=== PATIENT | female | born 1995 | race Caucasian/White ===

== ENCOUNTER 2017-09-05 22:43 | Emergency (ER) | payer BC ==
[2017-09-05 22:58] VITALS: BP 111/69; PULSE 72; TEMP 97.7; BMI 26.6
--- NOTE | 2017-09-06 00:05 | PDOC ---
History of Present Illness - General History Source: Patient Exam Limitations: No Limitations - History of Present Illness Initial Comments: 09/06/17 00:18 The patient is a 22-year-old female, with no significant past medical history, who presents to the ED with mid-sternal chest pain. Patient states that her pain radiates to her left arm and is associated with numbness/tingling. She also reports shortness of breath and nausea, but no vomiting. The patient is currently on her menstrual period and states it is normal. She denies being on any contraceptives. The patient reports having one episode of similar symptoms in the past, but her pain resolved on their own. The patient denies any fever, chills, diarrhea, or abdominal pain. Denies any diaphoresis or lightheadedness. Denies any recent travel. Family History: Denies Social History: The patient denies any tobacco or drug use. PCP: Dr. Zepeda <Alysa Alberto - Last Filed: 09/06/17 01:32> - General History Source: Patient <Matthew Estrada - Last Filed: 09/06/17 01:34> - General Chief Complaint: Pain Stated Complaint: CHEST PAIN Time Seen by Provider: 09/06/17 00:00 Past History <Alysa Alberto - Last Filed: 09/06/17 01:32> - Past Medical History COPD: No - Reproductive History (#): 0 Para: 0 - Immunization History Immunization Up to Date: Yes - Suicide/Smoking/Psychosocial Hx Smoking Status: No Smoking History: Never smoked Number of Cigarettes Smoked Daily: 0 <Matthew Estrada - Last Filed: 09/06/17 01:34> - Past Medical History Allergies/Adverse Reactions: Allergies Allergy/AdvReac Type Severity Reaction Status Date / Time No Known Allergies Allergy Verified 09/05/17 22:55 Home Medications: Ambulatory Orders NK [No Known Home Medication] 09/05/17 Review of Systems - Review of Systems Able to Perform ROS?: Yes Comments:: 09/06/17 00:19 CONSTITUTIONAL: Absent: fever, chills, diaphoresis, generalized weakness, malaise, loss of appetite HEENT: Absent: rhinorrhea, nasal congestion, throat pain, throat swelling, difficulty swallowing, mouth swelling, ear pain, eye pain, visual Changes CARDIOVASCULAR: Present: chest pain Absent: syncope, palpitations, irregular heart rate, lightheadedness, peripheral edema RESPIRATORY: Present: shortness of breath Absent: cough, dyspnea with exertion, orthopnea, wheezing, stridor, hemoptysis GASTROINTESTINAL: Present: nausea Absent: abdominal pain, abdominal distension, vomiting, diarrhea, constipation, melena, hematochezia GENITOURINARY: Absent: dysuria, frequency, urgency, hesitancy, hematuria, flank pain, genital pain MUSCULOSKELETAL: Absent: myalgia, arthralgia, joint swelling SKIN: Absent: rash, itching, pallor HEMATOLOGIC/IMMUNOLOGIC: Absent: easy bleeding, easy bruising, lymphadenopathy, frequent infections ENDOCRINE: Absent: unexplained weight gain, unexplained weight loss, heat intolerance, cold intolerance NEUROLOGIC: Present: numbness and tingling of left arm Absent: headache, dizziness, unsteady gait, seizure, mental status changes, bladder or bowel incontinence PSYCHIATRIC: Absent: anxiety, depression, suicidal or homicidal ideation, hallucinations. <Alysa Alberto - Last Filed: 09/06/17 01:32> *Physical Exam - Vital Signs Last Vital Signs Temp Pulse Resp BP Pulse Ox 97.7 F 72 18 111/69 100 09/05/17 22:56 09/05/17 22:56 09/05/17 22:56 09/05/17 22:56 09/05/17 22:56 - Physical Exam Comments: 09/06/17 00:20 GENERAL: Well developed, well nourished. Awake and alert. No acute distress. HEENT: Normocephalic, atraumatic. PERRLA, EOMI. No conjunctival pallor. Sclera are non- icteric. Moist mucous membranes. Oropharynx is clear. NECK: Supple. Full ROM. No JVD. Carotid pulses 2+ and symmetric, without bruits. No thyromegaly. No lymphadenopathy. CARDIOVASCULAR: Regular rate and rhythm. No murmurs, rubs, or gallops. Distal pulses are 2+ and symmetric. PULMONARY: No evidence of respiratory distress. Lungs clear to auscultation bilaterally. No wheezing, rales or rhonchi. ABDOMINAL: Soft. Non-tender. Non-distended. No rebound or guarding. No organomegaly. Normoactive bowel sounds. MUSCULOSKELETAL Normal range of motion at all joints. No bony deformities or tenderness. No CVA tenderness. EXTREMITIES: No cyanosis. No clubbing. No edema. No calf tenderness. SKIN: Warm and dry. Normal capillary refill. No rashes. No jaundice. NEUROLOGICAL: Alert, awake, appropriate. PSYCHIATRIC: Cooperative. Good eye contact. Appropriate mood and affect. <Alysa Alberto - Last Filed: 09/06/17 01:32> - Vital Signs Last Vital Signs Temp Pulse Resp BP Pulse Ox 97.7 F 72 18 111/69 100 09/05/17 22:56 09/05/17 22:56 09/05/17 22:56 09/05/17 22:56 09/05/17 22:56 <Matthew Estrada - Last Filed: 09/06/17 01:34> ED Treatment Course - LABORATORY CBC & Chemistry Diagram: 09/06/17 00:24 09/06/17 00:24 <Alysa Alberto - Last Filed: 09/06/17 01:32> - LABORATORY CBC & Chemistry Diagram: 09/06/17 00:24 09/06/17 00:24 <Matthew Estrada - Last Filed: 09/06/17 01:34> Medical Decision Making - Medical Decision Making 09/06/17 01:30 Dr. Estrdaa: The scribe's documentation has been prepared under my direction and personally reviewed by me in its entirery. I confirm that the note above accurately reflects all work, treatment, procedures, and medical decision making performed by me. Pt labs are all stable. Pt to follow up with her pcp office to have cardiology referral <Matthew Estrada - Last Filed: 09/06/17 01:34> *DC/Admit/Observation/Transfer - Attestations Scribe Attestion: 09/06/17 00:21 Documentation prepared by Alysa Alberto, acting as medical staff specialist for Matthew Estrada MD. <Alysa Alberto - Last Filed: 09/06/17 01:32> - Discharge Dispostion Admit: No <Matthew Estrada - Last Filed: 09/06/17 01:34> Diagnosis at time of Disposition: Chest pain - Discharge Dispostion Disposition: HOME Condition at time of disposition: Stable - Referrals Referrals: Govind Zepeda MD [Primary Care Provider] - Sam Bowser MD [Staff Physician] - - Patient Instructions Printed Discharge Instructions: DI for Chest Pain Additional Instructions: Please follow up with your primary care doctor for re-evaluation and cardiology referral - Post Discharge Activity Forms/Work/School Notes: Back to School
[2017-09-06 00:38] LABS: BASO % 0.7 % (0-2.0); EOS % 0.5 % (0-4.5); HEMOGLOBIN 11.3 GM/dL (10.7-15.3); LYMPH % 50.7 % (8-40); MCHC 33.3 g/dl (32.0-36.0); MEAN CELL VOLUME 84.2 fl (80-96); MEAN PLT VOLUME 7.8 fl (7.5-11.1); MONO % 6.6 % (3.8-10.2); NEUT % 41.5 % (42.8-82.8); PLATELET COUNT 260 K/MM3 (134-434); RBC 4.04 M/mm3 (3.60-5.2); RDW 15.5 % (11.6-15.6); WHITE BLOOD COUNT 6.9 K/mm3 (4.0-10.0)
[2017-09-06 01:03] LABS: ALBUMIN 3.8 g/dl (3.4-5.0); ANION GAP 11 (8-16); BILIRUBIN,TOTAL 0.3 mg/dL (0.2-1.0); BLOOD UREA NITROGEN 8 mg/dL (7-18); CALCIUM 8.5 mg/dL (8.5-10.1); CHLORIDE 104 mmol/L (98-107); CO2 27 mmol/L (21-32); CREATININE 0.8 mg/dL (0.55-1.02); GLUCOSE,RANDOM 88 mg/dL (74-106); SGOT/AST 19 U/L (15-37); SGPT/ALT 19 U/L (12-78); SODIUM 142 mmol/L (136-145); TOT PROT 7.3 g/dl (6.4-8.2)
[2017-09-06 01:06] LABS: ALK PHOS 59 U/L (45-117)
--- NOTE | 2017-09-06 11:20 | EKG ---
Test Reason : Blood Pressure : / mmHG Vent. Rate : 071 BPM Atrial Rate : 071 BPM P-R Int : 138 ms QRS Dur : 096 ms QT Int : 410 ms P-R-T Axes : 067 079 062 degrees QTc Int : 445 ms NORMAL SINUS RHYTHM WITH SINUS ARRHYTHMIA NORMAL ECG NO PREVIOUS ECGS AVAILABLE Confirmed by GABRIELA DE SANTIAGO MD ([id number]) on 09/06/2017 11:20:30 AM Referred By: Confirmed By:GABRIELA DE SANTIAGO MD
== END 2017-09-06 01:43 | disposition home or self-care (01) ==
LOC: JER 22:43
DX: R07.89 Other chest pain (principal)
CPT/HCPCS: 36415; 80053; 82550; 84484; 84703; 85025; 85379; 93005; 93010; 99283-25

== ENCOUNTER 2022-03-05 18:19 | Emergency (ER) | payer OTHER ==
[2022-03-05 18:37] VITALS: BP 125/78; PULSE 91; RESP 18; TEMP 98.3; BMI 29.7
[2022-03-05] MEDS ORDERED: ACETAMINOPHEN 325 MG TABLET (FP) PO ONE (19:11)
[2022-03-05] MEDS ORDERED: ONDANSETRON 4 MG TABLET PO ONE (19:24)
[2022-03-05] MEDS ORDERED: MECLIZINE HCL 25 MG TABLET (FP) PO ONE (19:24)
[2022-03-05] MEDS ORDERED: DEXAMETHASONE 4 MG TABLET (FP) PO ONE (19:26)
[2022-03-05] MEDS ORDERED: MECLIZINE HCL 25 MG TABLET (FP) ONE (20:04)
[2022-03-05] MEDS ORDERED: ONDANSETRON *ODT* 4 MG TABLET ONE (20:04)
[2022-03-05] MEDS ORDERED: DEXAMETHASONE 4 MG TABLET (FP) ONE (20:05)
[2022-03-05] MEDS ORDERED: ACETAMINOPHEN 325 MG TABLET (FP) ONE (20:05)
[2022-03-05] MEDS ORDERED: SODIUM CHLORIDE 1,000 ML IV STA (20:24)
[2022-03-05 21:17] LABS: BASO % 0.7 % (0-2.0); EOS % 0.7 % (0-4.5); HEMATOCRIT 37.6 % (32.4-45.2); HEMOGLOBIN 12.6 GM/dL (10.7-15.3); LYMPH % 45.3 % (8-40); MCH 28.2 pg (25.7-33.7); MCHC 33.5 g/dl (32.0-36.0); MEAN CELL VOLUME 84.2 fl (80-96); MEAN PLT VOLUME 7.4 fl (7.5-11.1); MONO % 8.4 % (3.8-10.2); NEUT % 44.9 % (42.8-82.8); PLATELET COUNT 299 10^3/uL (134-434); RBC 4.46 M/mm3 (3.60-5.2); RDW 14.8 % (11.6-15.6)
[2022-03-05 21:42] LABS: ALBUMIN 3.8 g/dl (3.4-5.0); BLOOD UREA NITROGEN 7.4 mg/dL (7-18); CALCIUM 8.6 mg/dL (8.5-10.1)
[2022-03-05 21:45] LABS: CREATININE 0.7 mg/dL (0.55-1.3)
[2022-03-05 21:47] LABS: BILIRUBIN,TOTAL 0.2 mg/dL (0.2-1); TOT PROT 7.6 g/dl (6.4-8.2)
[2022-03-05] MEDS ORDERED: METOCLOPRAMIDE HCL INJECTION 10 MG/2 ML VIAL IVPUSH ONE (22:08)
[2022-03-05] MEDS ORDERED: METOCLOPRAMIDE HCL INJECTION 10 MG/2 ML VIAL ONE (22:56)
== END 2022-03-06 00:25 | disposition home or self-care (01) ==
LOC: JER 18:19
PROC: 3E033GC Introduction of Other Therapeutic Substance into Peripheral Vein, Percutaneous Approach (ICD-10-PCS; principal; 2022-03-05)
DX: R42 Dizziness and giddiness (principal)
CPT/HCPCS: 0241U-QW; 36415; 70450-TC; 80053; 84703; 85025; 93005; 93010; 99285-25